=== PATIENT | female | born 1975 | race African-American/Black ===

== ENCOUNTER → 2016-05-06 | Outpatient (CLI) | payer OTHER ==
[~2016-05-06] MED LIST: IBUPROFEN800 MG PO; PEN-VEE K PO
--- NOTE | ~2016-05-06 | EKG ---
PATIENT: BILL PAGAN UNIT #: [id number] Ventricular Rate: 59 BPM Atrial Rate: 59 BPM P-R Interval: 150 ms QRS Duration: 70 ms Q-T Interval: 382 ms QTC Calculation(Bezet): 378 ms P Ermine: 2 degrees Calculated R Ermine: 28 degrees Calculated T Ermine: 9 degrees Diagnosis Line: Sinus bradycardia with sinus arrhythmia Diagnosis Line: Otherwise normal ECG Diagnosis Line: When compared with ECG of 20-MAR-2014 20:25, Diagnosis Line: Vent. rate has decreased BY 42 BPM Diagnosis Line: T wave inversion now evident in Inferior leads Diagnosis Line: T wave amplitude has increased in Lateral leads Diagnosis Line: QT has shortened Diagnosis Line: Confirmed by BRADLEY CROUCH MD ([id number]) on 05/07/2016 Diagnosis Line: 9:14:57 PM INTERPRETING MD: MIKO BLANCA
[2016-05-06 11:43] LABS: HEMATOCRIT 39.2 % (35.0-45.0); HEMOGLOBIN 12.8 gm/dL (12.0-16.0); MEAN CELL VOLUME 95.5 FL (83-96); MEAN CORPUSCULAR HEMOGLOBIN 31.2 PG (28-34); MEAN CORPUSCULAR HGB CONC 32.7 g/dL (30-36); MEAN PLATELET VOLUME 8.7 FL (6.5-11.5); RED BLOOD COUNT 4.11 X10e (3.90-5.30); RED CELL DISTRIBUTION WIDTH 14.5 % (11.0-15.5); WHITE BLOOD COUNT 3.6 X10e3 (4.0-10.5)
[2016-05-06 11:44] LABS: URINE APPEARANCE CLOUDY; URINE BILIRUBIN NEG (NEG); URINE BLOOD 1+ (NEG); URINE GLUCOSE NEG (NEG); URINE KETONE NEG (NEG); URINE LEUKOCYTE ESTERASE 1+ (NEG); URINE NITRATE NEG (NEG); URINE PH 6.5 (5-8); URINE PROTEIN NEG (NEG); URINE SPECIFIC GRAVITY 1.005 (1.003-1.035); URINE UROBILINOGEN 0.2 MG/DL (NEG)
[2016-05-06 11:46] LABS: CULTURE INDICATED? YES; URINE BACTERIA AUWI 1+ (NEGATIVE); URINE SQUAMOUS EPITHELIAL CELL MOD /[HPF]
[2016-05-06 12:16] LABS: URINE COLOR STRAW; URINE SOURCE CLEAN CATCH
[2016-05-06 12:25] LABS: BUN/CREATININE RATIO 11.42; CALCIUM SERUM 9.2 mg/dL (8.4-10.2); CREATININE SERUM 0.7 mg/dL (0.6-1.4); GLOM FILT RATE Estimated 123.9 mL/min (>60); POTASSIUM 3.6 mmol/L (3.5-5.1)
== END | disposition home or self-care (01) ==
LOC: CAMB 10:56
PROVIDERS: Orthopaedic Surgery
DX: Z01.818 Encounter for other preprocedural examination (principal); S83.207A Unspecified tear of unspecified meniscus, current injury, left knee, initial encounter
CPT/HCPCS: 36415; 80048; 81003; 85027; 87086; 87088; 87186; 93005

== ENCOUNTER → 2016-05-09 | Day surgery (SDC) | payer OTHER ==
--- NOTE | ~2016-05-09 | OR ---
Unit #: [id number] #: [id number] Patient: BILL PAGAN [id number] [address] [address] [id number] O MR#: [id number] NAME: BILL PAGAN ROOM: Date of Procedure: 05/09/2016 Admission Date: 05/09/2016 Surgeon: Anne Henriquez M.D. : 1975 Attending Physician: Anne Henriquez M.D. Primary Care Physician: Sabina Mota M.D. OPERATIVE REPORT PREOPERATIVE DIAGNOSES Torn meniscus and degenerative joint disease of left knee. POSTOPERATIVE DIAGNOSES AND FINDINGS 1. Grade 2 chondromalacia of medial compartment. 2. Posterior horn and third tear of the medial meniscus. 3. Prominent medial plica. PROCEDURES PERFORMED 1. Arthroscopy, partial medial meniscectomy, and medial plica resection. 2. Injection Depo-Medrol, left knee. HISTORY AND FINDINGS The patient is a 38-year-old, who has been having pain in the left knee with episodes of knee catching, swelling, giving out. She had been treated conservatively, but she had persistent symptoms. She had MRI, which was suggestive of meniscus tear and was offered arthroscopic evaluation. She continued to have persistent symptoms. Risks of anesthesia and complications of surgery like infection, neurovascular injury, DVT, residual symptoms, need for further surgery have been explained. She voices understanding and wishes to proceed. DESCRIPTION OF PROCEDURE After induction of general anesthesia, the patient's left knee was examined to varus and valgus stress and was found to be stable in extension and 30 degrees of flexion. The Sheldon and the pivot shift tests were negative. Then, the left knee was prepped and draped in the usual sterile manner. Time-out was called. Operative site was confirmed and. Then, after infiltrating the knee joint with 1% Xylocaine with epi, through a parapatellar tendon approach, arthroscopy was performed. The suprapatellar pouch in the medial and lateral gutter was checked, was found to be normal without any loose bodies. The patellar undersurface and the trochlea of the femur was checked and was found to be normal. Medial compartment was then checked. At this point, patient was noticed to have a rather prominent medial plica putting some pressure on the medial femoral condyle. The medial compartment revealed grade 2 chondromalacic changes, but without any unstable chondral rim. Medial meniscus revealed a tear involving the posterior horn and third of the medial meniscus, so using arthroscopic punch and shaver, partial medial meniscectomy was performed. Intercondylar notch was checked. The remaining meniscus was probed. It was found to be stable and intact. Intercondylar notch was checked. ACL and PCL were found to be normal. Unit #: [id number] #: [id number] Patient: BILL PAGAN Lateral compartment was essentially normal with intact lateral meniscus and at this point, it was decided to resect the medial plica as it was impinging on the medial femoral condyle, so using a shaver, resection of the medial plica was done. Then, knee joint was thoroughly irrigated, after which 15 mL of 0.25% Marcaine with epi and 40 mg of Depo-Medrol was injected into the knee and 5 mL of 0.25% Marcaine was instilled in the operative portal. Wound was closed with 4-0 nylon. Sterile compression dressing was applied. Blood loss approximately 10 mL. The patient received preoperative antibiotics. Tolerated the procedure well and was transferred to the recovery room in satisfactory condition. POSTOPERATIVE INSTRUCTIONS 1. Ice packs to the knee and partial weightbearing ambulation with crutches. 2. Tintah 7.5 mg p.o. q.6 hours p.r.n. and Coumadin 2.5 mg once daily. We will have a PT/INR in 5 days. 3. She was given a followup appointment. Return to my office in one week. If any problems, to contact me. Dictated by... Genaro Anton/aniket TD: 05/10/2016 03:53 JOB #: [id number] OPERATIVE REPORT Page 1 of 1 X Anne Henriquez MD X PROCEDURE OPERATIVE NOTE
[2016-05-09 09:51] LABS: URINE SOURCE CLEAN CATCH
[2016-05-09 09:56] LABS: URINE APPEARANCE CLOUDY; URINE BILIRUBIN NEG (NEG); URINE BLOOD NEG (NEG); URINE COLOR YELLOW; URINE GLUCOSE NEG (NEG); URINE KETONE NEG (NEG); URINE LEUKOCYTE ESTERASE NEG (NEG); URINE NITRATE NEG (NEG); URINE PH 5.5 (5-8); URINE PROTEIN NEG (NEG)
[2016-05-09 10:13] LABS: CULTURE INDICATED? NO
== END | disposition home or self-care (01) ==
LOC: CSUR 09:26
PROVIDERS: Orthopaedic Surgery
DX: S83.242A Other tear of medial meniscus, current injury, left knee, initial encounter (principal); M17.12 Unilateral primary osteoarthritis, left knee; M94.262 Chondromalacia, left knee; M67.52 Plica syndrome, left knee; F17.210 Nicotine dependence, cigarettes, uncomplicated; Z98.51 Tubal ligation status; Z88.0 Allergy status to penicillin
CPT/HCPCS: 81003; 84703; J0171; J0690; J1030; J1100; J1650; J1885; J2405; J3010

== ENCOUNTER → 2016-05-15 | Outpatient (CLI) | payer OTHER ==
[2016-05-15 12:09] LABS: PROTHROMBIN TIME (PATIENT) 10.7 SECONDS (9.6-11.5)
== END | disposition home or self-care (01) ==
LOC: CLAB 11:14
PROVIDERS: Orthopaedic Surgery
DX: Z47.89 Encounter for other orthopedic aftercare (principal); Z98.890 Other specified postprocedural states
CPT/HCPCS: 36415; 85610